=== PATIENT | male | born 1950 | race Caucasian/White ===

== ENCOUNTER 2023-12-07 16:57 | Emergency (ER) | payer MEDICARE ==
[~2023-12-07] VITALS: Ht 188 cm; Wt 99.8 kg
[2023-12-07] MEDS ORDERED: ONDANSETRON 4 MG/2 ML VIAL IV ONE (17:30)
[2023-12-07] MEDS ORDERED: IV NORMAL SALINE 1000 ML BAG IV ONE (17:30)
[2023-12-07] MEDS ORDERED: HYDROMORPHONE 1 MG/1 ML DISP.SYRIN IV ONE (17:30)
[2023-12-07] MEDS ORDERED: HYDROMORPHONE 1 MG/1 ML DISP.SYRIN ONE (17:39)
[2023-12-07] MEDS ORDERED: ONDANSETRON 4 MG/2 ML VIAL ONE (17:39)
[2023-12-07] MEDS ORDERED: IOHEXOL 300MG/ML 100 ML INFUS..BTL ONE (17:42)
[2023-12-07 17:43] LABS: BASOPHILS # (AUTO) 0.1 K/UL (0.0-0.2); EOSINOPHILS % (AUTO) 0.2 % (0.0-7.0); HEMATOCRIT 46.4 % (36.7-47.1); HEMOGLOBIN 15.5 g/dL (12.5-16.3); LYMPHOCYTES # (AUTO) 0.6 K/uL (0.8-4.8); MEAN CORPUSCULAR HEMOGLOBIN 30.3 uug (23.8-33.4); MEAN CORPUSCULAR HGB CONC 33 g/dL (32.5-36.3); MEAN CORPUSCULAR VOLUME 90.5 fL (73.0-96.2); MONOCYTES # (AUTO) 0.4 K/uL (0.1-1.30); MONOCYTES % (AUTO) 5.1 % (0.0-11.0); NEUTROPHILS # (AUTO) 6.2 K/uL (1.8-8.9); NEUTROPHILS % (AUTO) 84.7 % (38.5-71.5); PLATELET COUNT (AUTO) 181 K/uL (152-348); RED BLOOD CELL COUNT(AUTO) 5.12 MIL/uL (4.06-5.63); RED CELL DISTRIBUTION WIDTH 13.3 % (12.1-16.2); WHITE BLOOD COUNT (AUTO) 7.3 K/uL (3.6-10.2)
[2023-12-07] MEDS ORDERED: IV NORMAL SALINE 250 ML IV ONE (17:43)
[2023-12-07] MEDS ORDERED: SWABABLE VALVE TRANSFER SET EA MC ONE (17:43)
[2023-12-07 17:58] LABS: CALCIUM 8.8 mg/dL (8.5-10.1); CARBON DIOXIDE 27 mmol/L (21-32); CHLORIDE 106 mmol/L (98-107); CREATININE 1.1 mg/dL (0.6-1.3); GLUCOSE 227 mg/dL (74-106); POTASSIUM 4.1 mmol/L (3.5-5.1); SODIUM SERUM 142 mmol/L (136-145); UREA NITROGEN, BLOOD 14 mg/dL (7-18)
[2023-12-07 18:06] LABS: ALANINE AMINOTRANSFERASE 20 U/L (16-63); ALBUMIN 3.3 g/dL (3.4-5.0); ALKALINE PHOSPHATASE 89 U/L (50-136); ASPARTATE AMINOTRANSFERASE < 5 U/L (15-37); BILIRUBIN,DIRECT 0.3 mg/dL (0.0-0.2); LIPASE 22 U/L (16-77); TOTAL PROTEIN, SERUM 7.5 g/dL (6.4-8.2)
[2023-12-07 18:40] LABS: DIFFERENTIAL COMMENT 1
[2023-12-07] MEDS ORDERED: FLEET ENEMA 133 ML BOTTLE RC ONE ×2 (20:00→20:05)
[2023-12-07] MEDS ORDERED: NA P133E RC (23:01)
[2023-12-07] MEDS ORDERED: POLY17PO4 PO (23:01)
[2023-12-07 23:57] VITALS: BP 128/75; TEMP 98.5; O2SAT 99
== END 2023-12-07 23:57 ==
LOC: ER 16:57
DX: K56.41 Fecal impaction (principal); R10.10 Upper abdominal pain, unspecified; Z79.899 Other long term (current) drug therapy
CPT/HCPCS: 99285; 74177; 96374; 76705; 71045; 96361; 96375; 80076; 80048; 83880; 83690; 85025; 84484; 36415; 93005; 83605; J2405; Q9967; J1170; J7040; A4606; A4663